=== PATIENT | female | born 1985 | race Caucasian/White ===

== ENCOUNTER 2017-11-13 15:06 | Inpatient (IN) | payer SELFPAY ==
[2017-11-13] MEDS ORDERED: NACL 0.9% 1000 ML 1,000 ML IV ONE ×2 (15:20→17:13)
[2017-11-13 15:59] LABS: Bilirubin,Urine NEG (Negative); Blood,Urine SM (Negative); Color,Urine Yellow (Yellow); Mucus,Urine 1+ /HPF; Protein,Urine <15 mg/dL mg/dL (Negative); Urobilinogen,Urine < 2.0 mg/dL (<2.0)
[2017-11-13 16:13] LABS: Basophils % (Auto) 0.2 % (0.0-1.8); Eosinophils # (Auto) 0.1 K/mm3 (0.0-0.4); Eosinophils % (Auto) 0.5 % (0.0-4.3); Hematocrit 41.6 % (30.3-42.9); Hemoglobin 13.9 gm/dl (10.1-14.3); Lymphocytes # (Auto) 1.3 K/mm3 (1.2-5.4); Lymphocytes % (Auto) 6.9 % (13.4-35.0); Mean Corpuscular HGB Conc 33 % (30-34); Mean Corpuscular Hemoglobin 30 pg (28-32); Mean Corpuscular Volume 89 fl (79-97); Monocytes # (Auto) 0.9 K/mm3 (0.0-0.8); Monocytes % (Auto) 4.8 % (0.0-7.3); Platelet Count 263 K/mm3 (140-440); Red Blood Count 4.66 M/mm3 (3.65-5.03); Red Cell Distribution Width 12.8 % (13.2-15.2)
[2017-11-13 16:36] LABS: Alanine Aminotransferase 28 units/L (7-56); Albumin 4.4 g/dL (3.9-5); BUN/Creatinine Ratio 15; Blood Urea Nitrogen 9 mg/dL (7-17); Calcium 9.5 mg/dL (8.4-10.2); Hemolysis Index 9; Lipase 25 units/L (13-60)
[2017-11-13] MEDS ORDERED: TORADOL IV ONE (17:13)
[2017-11-13] MEDS ORDERED: ZOFRAN IV ONE ×2 (17:13→20:10)
--- NOTE | 2017-11-13 17:15 | Emergency Department Report ---
ED Abdominal Pain HPI - General Chief Complaint: Abdominal Pain Stated Complaint: ABD PAIN Time Seen by Provider: 11/13/17 17:12 Source: patient, nurse practitioner physicians assistant Mode of arrival: Ambulatory Limitations: Language Barrier - History of Present Illness Initial Comments: [place] utilized This is a 32-year-old female reports that she is having right upper quadrant pain, epigastric pain and also pain right upper quadrant radiating to her right back. Patient reports that she has a history of gallbladder disease and she took herbal medicine last year and problem had resolved but now she is having severe pain with nausea. Patient reports pain is crampy, stabbing and 10/10. She denies any fever or chills. Denies any cough or chest pain. Denies any urinary burning, frequency or urgency. Denies any vaginal bleeding or discharge. Patient's that she took [id number] pain medication but her pain has not resolved. No alleviating factors but pain is worse to touch and also when she vomits. MD Complaint: abdominal pain, other (nausea and vomited) Onset/Timin -: days(s) Location: RUQ, epigastric Radiation: back Migration to: no migration Severity: severe Severity scale (0 -10): 10 Quality: cramping, stabbing Consistency: constant Improves With: nothing Worsens With: vomiting, other (palpation) Context: other (patient reports gallbladder disease) Associated Symptoms: nausea, vomiting. denies: diarrhea, fever, chills, constipation, dysuria, hematemesis, hematochezia, melena, hematuria, anorexia, syncope - Related Data Home Medications Medication Instructions Recorded Confirmed Last Taken No Known Home Medications [No 07/20/15 07/20/15 Unknown Reported Home Medications] Allergies Allergy/AdvReac Type Severity Reaction Status Date / Time No Known Allergies Allergy Verified 11/13/17 15:16 ED Review of Systems ROS: Stated complaint: ABD PAIN Other details as noted in HPI Constitutional: denies: chills, fever ENT: denies: ear pain, throat pain, congestion Respiratory: denies: cough, shortness of breath, SOB with exertion, SOB at rest , stridor, wheezing Cardiovascular: denies: chest pain, palpitations, edema, syncope Gastrointestinal: abdominal pain, nausea, vomiting. denies: diarrhea, constipation, hematemesis, melena, hematochezia Genitourinary: denies: urgency, dysuria, discharge Musculoskeletal: denies: back pain, joint swelling, arthralgia Skin: denies: rash, lesions, pruritus Neurological: denies: headache, weakness, numbness, paresthesias, confusion, abnormal gait, vertigo ED Past Medical Hx - Past Medical History Previous Medical History?: No - Surgical History Additional Surgical History: C/S - Social History Smoking Status: Never Smoker Substance Use Type: None - Medications Home Medications: Home Medications Medication Instructions Recorded Confirmed Last Taken Type No Known Home Medications [No 07/20/15 07/20/15 Unknown History Reported Home Medications] ED Physical Exam - General Limitations: Language Barrier ED Course Vital Signs 11/13/17 11/13/17 15:16 20:17 Temperature 98.7 F 99.0 F Pulse Rate 85 64 Respiratory 18 18 Rate Blood Pressure 103/66 Blood Pressure 106/54 [Left] O2 Sat by Pulse 99 99 Oximetry Vital Signs 11/13/17 11/13/17 15:16 20:17 Temperature 98.7 F 99.0 F Pulse Rate 85 64 Respiratory 18 18 Rate Blood Pressure 103/66 Blood Pressure 106/54 [Left] O2 Sat by Pulse 99 99 Oximetry - Reevaluation(s) Reevaluation #1: 11/13/17 18:07 Given Toradol 30 mg IV and Zofran 4 mg IV for nausea and abdominal pain. Normal saline infusing. Patient still with tenderness to abdomen but no nausea. Still awaiting ultrasound Reevaluation #2: 11/13/17 20:[address] Meraz regarding patient lab reports and ultrasound report of gallbladder and he reports that if patient pain can be controlled that she should be sent home and follow-up in office. Patient still with abdominal pain and she said her nausea is coming back. She says she can get somebody to pick her up for her pain is better. Patient to receive morphine 4 mg IV and Zofran 4 mg IV. I discussed with patient via nurse practitioner physicians assistant that her ultrasound shows that she has gallbladder disease with some gallstone .she still have tenderness to her abdomen with guarding. Reevaluation #3: 11/13/17 21:16 Upon reevaluation, patient abdomen is hot frame tender to right upper quadrant, nausea is better but she said her pain is still there. She reports that her pain is 7/10. She no longer have any pain. Reevaluation #4: 11/13/17 21:[address] King was the hospitalist and gave her patient ultrasound report along with CBC and other lab work and I told her that I spoke with Dr. Meraz was a surgeon that reports this patient pain is not controlled that she will need to be admitted and he will see her in the hospital. He wants patient to be admitted by the hospitalist. Dr. King accepted patient. I ordered for IV Zosyn per Dr. King 4.5 g and patient was started on D5 half normal saline at 125 mL an hour. Patient aware of plans for admission and she is in agreement. ED Medical Decision Making - Lab Data Result diagrams: 11/13/17 15:52 11/13/17 15:52 Lab Results 11/13/17 11/13/17 11/13/17 Range/Units 15:26 15:52 15:52 WBC 19.1 H (4.5-11.0) K/mm3 RBC 4.66 (3.65-5.03) M/mm3 Hgb 13.9 (10.1-14.3) gm/dl Hct 41.6 (30.3-42.9) % MCV 89 (79-97) fl MCH 30 (28-32) pg MCHC 33 (30-34) % RDW 12.8 L (13.2-15.2) % Plt Count 263 (140-440) K/mm3 Lymph % (Auto) 6.9 L (13.4-35.0) % [place] % (Auto) 4.8 (0.0-7.3) % Eos % (Auto) 0.5 (0.0-4.3) % Baso % (Auto) 0.2 (0.0-1.8) % Lymph # 1.3 (1.2-5.4) K/mm3 [place] # 0.9 H (0.0-0.8) K/mm3 Eos # 0.1 (0.0-0.4) K/mm3 Baso # 0.0 (0.0-0.1) K/mm3 Seg Neutrophils % 87.6 H (40.0-70.0) % Seg Neutrophils # 16.7 H (1.8-7.7) K/mm3 Sodium 138 (137-145) mmol/L Potassium 4.5 (3.6-5.0) mmol/L Chloride 97.6 L (98-107) mmol/L Carbon Dioxide 28 (22-30) mmol/L Anion Gap 17 mmol/L BUN 9 (7-17) mg/dL Creatinine 0.6 L (0.7-1.2) mg/dL Estimated GFR > 60 ml/min BUN/Creatinine Ratio 15 % Glucose 158 H (65-100) mg/dL Calcium 9.5 (8.4-10.2) mg/dL Total Bilirubin 0.80 (0.1-1.2) mg/dL AST 44 H (5-40) units/L ALT 28 (7-56) units/L Alkaline Phosphatase 110 (35-129) units/L Total Protein 7.9 (6.3-8.2) g/dL Albumin 4.4 (3.9-5) g/dL Albumin/Globulin Ratio 1.3 % Lipase 25 (13-60) units/L HCG, Qual (Negative) Urine Color Yellow (Yellow) Urine Turbidity Clear (Clear) Urine pH 6.0 (5.0-7.0) Ur Specific [place] 1.014 (1.003-1.030) Urine Protein <15 mg/dl (Negative) mg/dL Urine Glucose (UA) Neg (Negative) mg/dL Urine Ketones Neg (Negative) mg/dL Urine Blood Sm (Negative) Urine Nitrite Neg (Negative) Urine Bilirubin Neg (Negative) Urine Urobilinogen < 2.0 (<2.0) mg/dL Ur Leukocyte Esterase Tr (Negative) Urine WBC (Auto) 1.0 (0.0-6.0) /HPF Urine RBC (Auto) 10.0 (0.0-6.0) /HPF U Epithel Cells (Auto) 3.0 (0-13.0) /HPF Urine Mucus 1+ /HPF 11/13/17 Range/Units 16:08 WBC (4.5-11.0) K/mm3 RBC (3.65-5.03) M/mm3 Hgb (10.1-14.3) gm/dl Hct (30.3-42.9) % MCV (79-97) fl MCH (28-32) pg MCHC (30-34) % RDW (13.2-15.2) % Plt Count (140-440) K/mm3 Lymph % (Auto) (13.4-35.0) % [place] % (Auto) (0.0-7.3) % Eos % (Auto) (0.0-4.3) % Baso % (Auto) (0.0-1.8) % Lymph # (1.2-5.4) K/mm3 [place] # (0.0-0.8) K/mm3 Eos # (0.0-0.4) K/mm3 Baso # (0.0-0.1) K/mm3 Seg Neutrophils % (40.0-70.0) % Seg Neutrophils # (1.8-7.7) K/mm3 Sodium (137-145) mmol/L Potassium (3.6-5.0) mmol/L Chloride (98-107) mmol/L Carbon Dioxide (22-30) mmol/L Anion Gap mmol/L BUN (7-17) mg/dL Creatinine (0.7-1.2) mg/dL Estimated GFR ml/min BUN/Creatinine Ratio % Glucose (65-100) mg/dL Calcium (8.4-10.2) mg/dL Total Bilirubin (0.1-1.2) mg/dL AST (5-40) units/L ALT (7-56) units/L Alkaline Phosphatase (35-129) units/L Total Protein (6.3-8.2) g/dL Albumin (3.9-5) g/dL Albumin/Globulin Ratio % Lipase (13-60) units/L HCG, Qual Negative (Negative) Urine Color (Yellow) Urine Turbidity (Clear) Urine pH (5.0-7.0) Ur Specific [place] (1.003-1.030) Urine Protein (Negative) mg/dL Urine Glucose (UA) (Negative) mg/dL Urine Ketones (Negative) mg/dL Urine Blood (Negative) Urine Nitrite (Negative) Urine Bilirubin (Negative) Urine Urobilinogen (<2.0) mg/dL Ur Leukocyte Esterase (Negative) Urine WBC (Auto) (0.0-6.0) /HPF Urine RBC (Auto) (0.0-6.0) /HPF U Epithel Cells (Auto) (0-13.0) /HPF Urine Mucus /HPF Blood culture done - Radiology Data Radiology results: report reviewed Ultrasound abdomen complete dictated by radiologist report reviewed by myself. Please see report below. Patient: ROSELINE KNIGHT MR#: [id number] : 1985 Acct:[id number] Age/Sex: 32 / F ADM Date: 11/13/17 Loc: ED Attending Dr: Ordering Physician: HARSHAL TYLER Date of Service: 11/13/17 Procedure(s): US abdomen complete Accession Number(s): [id number] cc: HARSHAL TYLER FINAL REPORT EXAM: US ABDOMEN COMPLETE HISTORY: abdominal pain/NV TECHNIQUE: Grayscale and color-flow imaging of the abdomen was performed. Comparison: None FINDINGS: Pancreas: Incompletely visualized due to artifact. The visualized portion of the pancreas is unremarkable. Liver: Demonstrates homogeneous echogenicity. There is no demonstration of a focal mass. Upper abdominal aorta: Normal caliber (1.4 centimeters). Right kidney: Measures 10.8 centimeters in the maximal craniocaudal dimension. There is no demonstration of hydronephrosis, renal calculi or renal mass. Gallbladder: Moderately distended and contains numerous gallstones. The gallbladder wall is normal thickness (1 millimeter). There is no demonstration of pericholecystic fluid. Common bile duct: Normal caliber (4.4 millimeters). Spleen: Normal size and echogenicity. Left kidney: Measures 11.3 centimeters in the maximal craniocaudal dimension. There is no demonstration of hydronephrosis, renal calculi or renal mass. No free fluid is demonstrated in the upper abdomen. IMPRESSION: 1. Numerous small gallstones in the moderately distended gallbladder. No ultrasound evidence of acute cholecystitis. 2. The pancreas is incompletely visualized due to artifact. Transcribed By: ED Dictated By: RUTH ANN BROOKE MD Electronically Authenticated By: RUTH ANN BROOKE MD Signed Date/Time: 11/13/171952 DD/ 52 TD/TT: 11/13/171952 - Medical Decision Making This is a 32-year-old patient here for upper quadrant abdominal pain radiating to her back with a history of gallbladder disease. Diagnostics:1. Numerous small gallstones in the moderately distended gallbladder. No ultrasound evidence of acute cholecystitis. Labs: CBC with elevated white count 19.1 with shift to the left, CMP stable with some minor abnormality and minimal elevation in AST. Lipase normal, test is negative urinalysis and stable. Please refer to laboratory section for details and labs. Blood cultures drawn and sent Assessment/plan 1: Abdominal pain, quadrant-retractable despite Toradol 30 mg IV and morphine 4 mg IV. 2: Nausea and vomiting-better with Zofran iv. patient receives normal saline 1 L and started on D5 half-normal saline at 125 mL an hour. 3: Leukocytosis-patient will white count of 19, she is shift to the left, but cultures drawn and sent and patient started on Zosyn 4.[address] King. 4: Gallstones with distention of gallbladder-per ultrasound report .Dr. Meraz consulted and he will see patient tomorrow. Via nurse practitioner physicians assistant I discussed ultrasound report, laboratory self, medication and diagnosis and plan for admission because her pain is not better. Patient is in agreement and to be admitted to inpatient by Dr. King was the hospitalist. I spoke with Dr. King and she accepted patient. I called Dr. Anthony and he said that he will see patient tomorrow and he was consulted. Dr. King will put in her abdomen ED bridge orders as this is her preference. Patient on maintenance D5 half-normal saline and she was ordered Zosyn 4.5 g IV. - Differential Diagnosis GBD,CBD obs, bacterial infection, pancreatitis, liver disease, UTI Critical care attestation.: If time is entered above; I have spent that time in minutes in the direct care of this critically ill patient, excluding procedure time. ED Disposition Clinical Impression: Abdominal pain Qualifiers: Abdominal location: upper abdomen, unspecified Qualified Code(s): R10.10 - Upper abdominal pain, unspecified Gallstones without obstruction of gallbladder Qualifiers: Cholelithiasis location: gallbladder Cholecystitis presence: without cholecystitis Qualified Code(s): K80.20 - Calculus of gallbladder without cholecystitis without obstruction Leukocytosis Qualifiers: Leukocytosis type: unspecified Qualified Code(s): D72.829 - Elevated white blood cell count, unspecified Nausea & vomiting Qualifiers: Vomiting type: unspecified Vomiting Intractability: non-intractable Qualified Code(s): R11.2 - Nausea with vomiting, unspecified Disposition: OP ADMIT IP TO THIS HOSP Is pt being admited?: Yes Does the pt Need Aspirin: No Condition: Stable
--- NOTE | 2017-11-13 19:54 | Ultrasound Report ---
FINAL REPORT EXAM: US ABDOMEN COMPLETE HISTORY: abdominal pain/NV TECHNIQUE: Grayscale and color-flow imaging of the abdomen was performed. Comparison: None FINDINGS: Pancreas: Incompletely visualized due to artifact. The visualized portion of the pancreas is unremarkable. Liver: Demonstrates homogeneous echogenicity. There is no demonstration of a focal mass. Upper abdominal aorta: Normal caliber (1.4 centimeters). Right kidney: Measures 10.8 centimeters in the maximal craniocaudal dimension. There is no demonstration of hydronephrosis, renal calculi or renal mass. Gallbladder: Moderately distended and contains numerous gallstones. The gallbladder wall is normal thickness (1 millimeter). There is no demonstration of pericholecystic fluid. Common bile duct: Normal caliber (4.4 millimeters). Spleen: Normal size and echogenicity. Left kidney: Measures 11.3 centimeters in the maximal craniocaudal dimension. There is no demonstration of hydronephrosis, renal calculi or renal mass. No free fluid is demonstrated in the upper abdomen. IMPRESSION: 1. Numerous small gallstones in the moderately distended gallbladder. No ultrasound evidence of acute cholecystitis. 2. The pancreas is incompletely visualized due to artifact.
[2017-11-13] MEDS ORDERED: MORPHINE IV ONE (20:10)
[2017-11-13] MEDS ORDERED: ZOSYN/NS 4.5GM/100ML 4.5 GM/100 ML VIAL IV SCH (22:00)
[2017-11-13] MEDS ORDERED: D5/0.45NS 1,000 ML IV SCH (22:00)
[2017-11-13] MEDS ORDERED: SODIUM CHLORIDE FLUSH SYRINGE 10 ML IV PRN (22:31)
[2017-11-13] MEDS ORDERED: TYLENOL PO PRN (22:31)
--- NOTE | 2017-11-13 22:32 | History and Physical Report ---
History of Present Illness Date of examination: 11/13/17 History of present illness: 32-year-old woman with no medical problems comes emergency room with complains of abdominal pain located in the epigastric and right upper quadrant 1 week. She described the pain as a hurting pain, that is been constant over the last few days, intensity 6/10, radiating to the back, cannot identify exacerbating factor, relieved with morphine. Admits to nausea and vomiting, no fever Review of systems Constitutional: no weight loss, chills, fever Ears, eyes, nose, mouth and throat: no nasal congestion, no nasal discharge, no sinus pressure, no vision change, no red eye. Neck: No neck pain or rigidity. Cardiovascular: no chest pain, palpitations Respiratory: no cough, shortness of breath Gastrointestinal: no hematochezia Genitourinary : no frequency , no hematuria Musculoskeletal: no joint swelling or muscle ache Integumentary: no rash, no pruritis Neurological: no parathesias, no numbness, no focal weakness Endocrine: no cold or heat intolerance, no polyuria or polydipsia Hematologic/Lymphatic: no easy bruising, no easy bleeding, no gland swelling Allergic/Immunologic: no urticaria, no angioedema. PAST MEDICAL HISTORY: None PAST SURGICAL HISTORY: SOCIAL HISTORY: No alcohol, no drugs, tobacco FAMILY HISTORY: Hypertension Medications and Allergies Allergies Allergy/AdvReac Type Severity Reaction Status Date / Time No Known Allergies Allergy Verified 11/13/17 15:16 Home Medications Medication Instructions Recorded Confirmed Last Taken Type No Known Home Medications [No 07/20/15 07/20/15 Unknown History Reported Home Medications] Active Meds: Active Medications Dextrose/Sodium Chloride (D5/0.45ns) 1,000 mls @ 125 mls/hr IV DIRECT HIREN Last Admin: 11/13/17 21:58 Dose: 125 mls/hr Exam - Physical Exam Narrative exam: Gen. appearance: Patient lying in bed, no apparent distress HEENT: Normocephalic, atraumatic, pupils equally round and reactive to light, extraocular movement intact, and no sclericterus,. No JVD or thyromegaly or nodule,neck supple, no carotid bruit ,mucous membranes moist, no exudate or erythema Heart: S1, S2, regular rate and rhythm Lungs: Clear bilaterally, breathing comfortable Abdomen: Positive bowel sounds, tender in the epigastric, right upper quadrant, nondistended, no organomegaly Extremity:no edema cyanosis, clubbing Skin: no rash, dry, warm Neuro: Oriented 3, cranial nerves II-12 intact, speech is fluent, motor and sensory intact - Constitutional Vitals: Temp Pulse Resp BP Pulse Ox 99.0 F 64 16 106/54 100 11/13/17 20:17 11/13/17 20:17 11/13/17 21:39 11/13/17 20:17 11/13/17 21:39 Results - Labs CBC & Chem 7: 11/13/17 15:52 11/13/17 15:52 Labs: Abnormal lab results 11/13/17 11/13/17 Range/Units 15:52 15:52 WBC 19.1 H (4.5-11.0) K/mm3 RDW 12.8 L (13.2-15.2) % Lymph % (Auto) 6.9 L (13.4-35.0) % [place] # 0.9 H (0.0-0.8) K/mm3 Seg Neutrophils % 87.6 H (40.0-70.0) % Seg Neutrophils # 16.7 H (1.8-7.7) K/mm3 Chloride 97.6 L (98-107) mmol/L Creatinine 0.6 L (0.7-1.2) mg/dL Glucose 158 H (65-100) mg/dL AST 44 H (5-40) units/L - Imaging and Cardiology EKG: image reviewed US - abdomen: report reviewed Assessment and Plan Assessment Cholelithiasis, rule out cholecystitis Plan Admit to medicine Bowel rest,IV fluid,IV Zosyn Consult surgery IV morphine, DVT prophylaxis
[2017-11-14] MEDS: MORPHINE IV PRN ×5 (00:11→20:53)
[2017-11-14 04:36] LABS: Basophils % (Auto) 0.4 % (0.0-1.8); Eosinophils # (Auto) 0.1 K/mm3 (0.0-0.4); Eosinophils % (Auto) 1.3 % (0.0-4.3); Hematocrit 37.1 % (30.3-42.9); Hemoglobin 12.6 gm/dl (10.1-14.3); Lymphocytes # (Auto) 2.1 K/mm3 (1.2-5.4); Lymphocytes % (Auto) 23.6 % (13.4-35.0); Mean Corpuscular HGB Conc 34 % (30-34); Mean Corpuscular Hemoglobin 31 pg (28-32); Mean Corpuscular Volume 90 fl (79-97); Monocytes # (Auto) 0.7 K/mm3 (0.0-0.8); Monocytes % (Auto) 8.2 % (0.0-7.3); Platelet Count 226 K/mm3 (140-440); Red Blood Count 4.14 M/mm3 (3.65-5.03); Red Cell Distribution Width 12.6 % (13.2-15.2)
[2017-11-14 04:47] LABS: BUN/Creatinine Ratio 10; Blood Urea Nitrogen 7 mg/dL (7-17); Calcium 8.4 mg/dL (8.4-10.2); Hemolysis Index 2
[2017-11-14] MEDS: ZOFRAN IV PRN ×3 (05:07→17:18)
[2017-11-14] MEDS: NACL 0.9% 1000 ML 1,000 ML IV SCH ×2 (05:12→17:16)
[2017-11-14] MEDS ORDERED: ZOSYN/NS 4.5GM/100ML 4.5 GM/100 ML VIAL IV SCH (06:00)
[2017-11-14] MEDS ORDERED: ceFAZolin 2 GM in NACL 0.9% 100 ML IV ONE (09:20)
--- NOTE | 2017-11-14 09:43 | Anesthesia Consultation ---
Anesthesia Consult and Med Hx Date of service: 11/14/17 - Airway Anesthetic Teeth Evaluation: Good, Chipped Mallampati Class: Class II Intubation Access Assessment: Good - Pre-Operative Health Status ASA Pre-Surgery Classification: ASA1 Proposed Anesthetic Plan: General - Pulmonary Hx Asthma: No COPD: No Hx Pneumonia: No - Endocrine Hx End Stage Renal Disease: No - Additional Comments Anesthesia Medical History Comments: Hx. migranes. Cracked tooth, lower left molar. Otherwise healthy. NAC previously.
--- NOTE | 2017-11-14 09:43 | Anesthesia Day of Surgery ---
Anesthesia Day of Surgery - Day of Surgery Patient Examined: Yes Patient H&P Reviewed: Yes Patient is NPO: Yes
[2017-11-14] MEDS ORDERED: ANCEF/STERILE WATER 2 GM/20 ML 2 GM/20 ML SYRINGE IV NR (10:00)
[2017-11-14] MEDS ORDERED: NEURONTIN PO NR (10:00)
[2017-11-14] MEDS ORDERED: LOVENOX SUB-Q SCH ×2 (10:00)
--- NOTE | 2017-11-14 10:03 | Consultation ---
History of Present Illness Consult date: 11/14/17 Reason for consult: abdominal pain Requesting physician: ANTONIO GUEVARA Chief complaint: abdominal pain - History of present illness History of present illness: 32yo healthy female presents to ED with 1 week h/o upper abdominal pain. w/u revealed distended GB with stones. Pt reports that it is a band like pain in the upper abdomen that radiates to the right side. +N/V. No F/C. Has happened before and was told that she needed her GB removed. Unable to do so at that time. Pain is better with pain meds. No other issues. Past History Past Medical History: No medical history Past Surgical History: (no complications) Social history: alcohol abuse (very occasional). 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 Stop: 11/14/17 21:00 Sodium Chloride (Nacl 0.9% 1000 Ml) 1,000 mls @ 125 mls/hr IV DIRECT HIREN Last Admin: 11/14/17 05:12 Dose: 125 mls/hr Piperacillin Sod/Tazobactam Sod (Zosyn/Ns 4.5gm/100ml) 4.5 gm in 100 mls @ 200 mls/hr IV Q8HR HIREN; Protocol Last Infusion: 11/14/17 06:27 Dose: Infused Cefazolin Sodium (Ancef/Sterile Water 2 Gm/20 Ml) 2 gm in 20 mls @ 120 mls/hr IV PREOP NR Stop: 11/14/17 21:00 Morphine Sulfate (Morphine) 2 mg IV Q4H PRN PRN Reason: Pain, Moderate (4-6) Last Admin: 11/14/17 09:20 Dose: 2 mg Ondansetron HCl (Zofran) 4 mg IV Q4H PRN PRN Reason: Nausea And Vomiting Last Admin: 11/14/17 09:39 Dose: 4 mg Sodium Chloride (Sodium Chloride Flush Syringe 10 Ml) 10 ml IV BID HIREN Sodium Chloride (Sodium Chloride Flush Syringe 10 Ml) 10 ml IV PRN PRN PRN Reason: LINE FLUSH Review of Systems - Constitutional no weight loss, no fever, no chills, no sweats, no night sweats, no chronic pain - Cardiovascular chest pain (occasional chest pressure - mild tenderess to touch. Happened last night without radiation. Also occurred a few weeks ago with tingling in the left arm. Symptoms have always been mild. ), no rapid/irregular heart beat, no shortness of breath - Respiratory no cough, no shortness of breath - Gastrointestinal abdominal pain, nausea, vomiting, no diarrhea, no constipation, no change in bowel habits, no hematemesis, no coffee ground emesis, no BRBPR, no melena, no hematochezia, no dyspepsia/bloating - Genitourinary Genitourinary: no dysuria - Muskuloskeletal no low back pain - Integumentary no rash, no pruritis, no wounds Exam Vital Signs Temp Pulse Resp BP Pulse Ox 98.7 F 85 18 103/66 99 11/13/17 15:16 11/13/17 15:16 11/13/17 15:16 11/13/17 15:16 11/13/17 15:16 - General physical appearance Positive: no distress, no pain, other (healthy appearing) - Eyes Positive: normal occular movement. Negative: icteric - Respiratory Positive: normal expansion, normal respiratory effort, clear to auscultation - Cardiovascular Rhythm: regular - Abdomen Abdomen: Present: soft, tender (mild). Absent: distended, masses, rebound, guarding, rigid, wound - Integumentary no rash, no growths, no abnormal pigmentation - Neurologic Neurologic: alert and oriented to time, place and person, motor strength and sensation are grossly intact - Psychiatric Psychiatric: appropriate mood/affect, intact judgment & insight, cooperative Results - Labs 11/14/17 04:04 11/14/17 04:04 Abnormal lab results 11/13/17 11/13/17 11/14/17 Range/Units 15:52 15:52 04:04 WBC 19.1 H (4.5-11.0) K/mm3 RDW 12.8 L 12.6 L (13.2-15.2) % Lymph % (Auto) 6.9 L (13.4-35.0) % Meagher % (Auto) 8.2 H (0.0-7.3) % Meagher # 0.9 H (0.0-0.8) K/mm3 Seg Neutrophils % 87.6 H (40.0-70.0) % Seg Neutrophils # 16.7 H (1.8-7.7) K/mm3 Chloride 97.6 L (98-107) mmol/L Creatinine 0.6 L (0.7-1.2) mg/dL Glucose 158 H (65-100) mg/dL AST 44 H (5-40) units/L 11/14/17 Range/Units 04:04 WBC (4.5-11.0) K/mm3 RDW (13.2-15.2) % Lymph % (Auto) (13.4-35.0) % Meagher % (Auto) (0.0-7.3) % Meagher # (0.0-0.8) K/mm3 Seg Neutrophils % (40.0-70.0) % Seg Neutrophils # (1.8-7.7) K/mm3 Chloride (98-107) mmol/L Creatinine (0.7-1.2) mg/dL Glucose 122 H (65-100) mg/dL AST (5-40) units/L Diabetes panel 11/13/17 11/14/17 Range/Units 15:52 04:04 Sodium 138 141 (137-145) mmol/L Potassium 4.5 3.8 (3.6-5.0) mmol/L Chloride 97.6 L 100.5 (98-107) mmol/L Carbon Dioxide 28 29 (22-30) mmol/L BUN 9 7 (7-17) mg/dL Creatinine 0.6 L 0.7 (0.7-1.2) mg/dL Glucose 158 H 122 H (65-100) mg/dL Calcium 9.5 8.4 (8.4-10.2) mg/dL AST 44 H (5-40) units/L ALT 28 (7-56) units/L Alkaline Phosphatase 110 (35-129) units/L Total Protein 7.9 (6.3-8.2) g/dL Albumin 4.4 (3.9-5) g/dL Calcium panel 11/13/17 11/14/17 Range/Units 15:52 04:04 Calcium 9.5 8.4 (8.4-10.2) mg/dL Albumin 4.4 (3.9-5) g/dL Pituitary panel 11/13/17 11/14/17 Range/Units 15:52 04:04 Sodium 138 141 (137-145) mmol/L Potassium 4.5 3.8 (3.6-5.0) mmol/L Chloride 97.6 L 100.5 (98-107) mmol/L Carbon Dioxide 28 29 (22-30) mmol/L BUN 9 7 (7-17) mg/dL Creatinine 0.6 L 0.7 (0.7-1.2) mg/dL Glucose 158 H 122 H (65-100) mg/dL Calcium 9.5 8.4 (8.4-10.2) mg/dL Adrenal panel 11/13/17 11/14/17 Range/Units 15:52 04:04 Sodium 138 141 (137-145) mmol/L Potassium 4.5 3.8 (3.6-5.0) mmol/L Chloride 97.6 L 100.5 (98-107) mmol/L Carbon Dioxide 28 29 (22-30) mmol/L BUN 9 7 (7-17) mg/dL Creatinine 0.6 L 0.7 (0.7-1.2) mg/dL Glucose 158 H 122 H (65-100) mg/dL Calcium 9.5 8.4 (8.4-10.2) mg/dL Total Bilirubin 0.80 (0.1-1.2) mg/dL AST 44 H (5-40) units/L ALT 28 (7-56) units/L Alkaline Phosphatase 110 (35-129) units/L Total Protein 7.9 (6.3-8.2) g/dL Albumin 4.4 (3.9-5) g/dL - Imaging US - abdomen: report reviewed, image reviewed Assessment and Plan - Patient Problems (1) Cholelithiasis Current Visit: Yes Status: Acute Qualifiers: Cholelithiasis location: gallbladder Cholecystitis presence: without cholecystitis Biliary obstruction: without biliary obstruction Qualified Code(s): K80.20 - Calculus of gallbladder without cholecystitis without obstruction Plan to address problem: Pt stable. Appears to have symptomatic cholelithiasis. Pt in need of lap valeria. Procedure, risks, benefits explained. all questions answered. Consent obtained. Will proceed to OR today. time=40min
--- NOTE | 2017-11-14 10:05 | Progress Note ---
Assessment and Plan Assessment and plan: Symptomatic cholelithiasis. Surgery following. Leukocytosis. Etiology appears to be stress-induced. Rule out cholecystitis. Follow-up culture results and continue empiric IV antibiotics. Abdominal pain. Etiology secondary to #1. Continue pain control and supportive care. History Interval history: No new issues overnight Hospitalist Physical - Constitutional Vitals: Temp Pulse Resp BP Pulse Ox 98.4 F 63 16 97/56 99 11/14/17 07:14 11/14/17 07:14 11/14/17 07:14 11/14/17 07:14 11/14/17 07:14 General appearance: Present: no acute distress, well-nourished - EENT Eyes: Present: PERRL, EOM intact ENT: hearing intact, clear oral mucosa, dentition normal - Neck Neck: Present: supple, normal ROM - Respiratory Respiratory effort: normal Respiratory: bilateral: CTA - Cardiovascular Rhythm: regular Heart Sounds: Present: S1 & S2. Absent: gallop, rub - Extremities Extremities: no ischemia, No edema, Full ROM - Abdominal General gastrointestinal: soft, non-tender, non-distended, normal bowel sounds - Integumentary Integumentary: Present: clear, warm, dry - Neurologic Neurologic: CNII-XII intact, moves all extremities Results - Labs CBC & Chem 7: 11/14/17 04:04 11/14/17 04:04 Labs: Laboratory Last Values WBC 9.1 K/mm3 (4.5-11.0) 11/14/17 04:04 RBC 4.14 M/mm3 (3.65-5.03) 11/14/17 04:04 Hgb 12.6 gm/dl (10.1-14.3) 11/14/17 04:04 Hct 37.1 % (30.3-42.9) 11/14/17 04:04 MCV 90 fl (79-97) 11/14/17 04:04 MCH 31 pg (28-32) 11/14/17 04:04 MCHC 34 % (30-34) 11/14/17 04:04 RDW 12.6 % (13.2-15.2) L 11/14/17 04:04 Plt Count 226 K/mm3 (140-440) 11/14/17 04:04 Lymph % (Auto) 23.6 % (13.4-35.0) 11/14/17 04:04 Marion % (Auto) 8.2 % (0.0-7.3) H 11/14/17 04:04 Eos % (Auto) 1.3 % (0.0-4.3) 11/14/17 04:04 Baso % (Auto) 0.4 % (0.0-1.8) 11/14/17 04:04 Lymph # 2.1 K/mm3 (1.2-5.4) 11/14/17 04:04 Marion # 0.7 K/mm3 (0.0-0.8) 11/14/17 04:04 Eos # 0.1 K/mm3 (0.0-0.4) 11/14/17 04:04 Baso # 0.0 K/mm3 (0.0-0.1) 11/14/17 04:04 Seg Neutrophils % 66.5 % (40.0-70.0) 11/14/17 04:04 Seg Neutrophils # 6.1 K/mm3 (1.8-7.7) 11/14/17 04:04 Sodium 141 mmol/L (137-145) 11/14/17 04:04 Potassium 3.8 mmol/L (3.6-5.0) 11/14/17 04:04 Chloride 100.5 mmol/L (98-107) 11/14/17 04:04 Carbon Dioxide 29 mmol/L (22-30) 11/14/17 04:04 Anion Gap 15 mmol/L 11/14/17 04:04 BUN 7 mg/dL (7-17) 11/14/17 04:04 Creatinine 0.7 mg/dL (0.7-1.2) 11/14/17 04:04 Estimated GFR > 60 ml/min 11/14/17 04:04 BUN/Creatinine Ratio 10 % 11/14/17 04:04 Glucose 122 mg/dL (65-100) H 11/14/17 04:04 Calcium 8.4 mg/dL (8.4-10.2) 11/14/17 04:04 Total Bilirubin 0.80 mg/dL (0.1-1.2) 11/13/17 15:52 AST 44 units/L (5-40) H 11/13/17 15:52 ALT 28 units/L (7-56) 11/13/17 15:52 Alkaline Phosphatase 110 units/L (35-129) 11/13/17 15:52 Total Protein 7.9 g/dL (6.3-8.2) 11/13/17 15:52 Albumin 4.4 g/dL (3.9-5) 11/13/17 15:52 Albumin/Globulin Ratio 1.3 % 11/13/17 15:52 Lipase 25 units/L (13-60) 11/13/17 15:52 HCG, Qual Negative (Negative) 11/13/17 16:08 Urine Color Yellow (Yellow) 11/13/17 15:26 Urine Turbidity Clear (Clear) 11/13/17 15: Urine pH 6.0 (5.0-7.0) 11/13/17 15:26 Ur Specific [place] 1.014 (1.003-1.030) 11/13/17 15:26 Urine Protein <15 mg/dl mg/dL (Negative) 11/13/17 15:26 Urine Glucose (UA) Neg mg/dL (Negative) 11/13/17 15:26 Urine Ketones Neg mg/dL (Negative) 11/13/17 15:26 Urine Blood Sm (Negative) 11/13/17 15:26 Urine Nitrite Neg (Negative) 11/13/17 15:26 Urine Bilirubin Neg (Negative) 11/13/17 15:26 Urine Urobilinogen < 2.0 mg/dL (<2.0) 11/13/17 15:26 Ur Leukocyte Esterase Tr (Negative) 11/13/17 15:26 Urine WBC (Auto) 1.0 /HPF (0.0-6.0) 11/13/17 15:26 Urine RBC (Auto) 10.0 /HPF (0.0-6.0) 11/13/17 15:26 U Epithel Cells (Auto) 3.0 /HPF (0-13.0) 11/13/17 15: Urine Mucus 1+ /HPF 11/13/17 15:26
[2017-11-14] MEDS ORDERED: XYLOCAINE 1% 20 mL ONE (10:51)
[2017-11-14] MEDS ORDERED: MARCAINE 0.5% INFILTRATI ONE ×3 (10:51→11:28)
[2017-11-14] MEDS ORDERED: DIPRIVAN 10 MG/ML IV ONE (10:54)
[2017-11-14] MEDS ORDERED: DILAUDID ONE ×2 (10:54→12:54)
[2017-11-14] MEDS ORDERED: XYLOCAINE 1% 20 mL INFILTRATI ONE ×2 (11:28)
[2017-11-14] MEDS ORDERED: XYLOCAINE MPF 2% ONE (11:31)
[2017-11-14] MEDS ORDERED: ZOFRAN ONE (11:32)
[2017-11-14] MEDS ORDERED: ROBINUL ONE (11:32)
[2017-11-14] MEDS ORDERED: DECADRON ONE (11:32)
[2017-11-14] MEDS ORDERED: BLOXIVERZ ONE (11:32)
[2017-11-14] MEDS ORDERED: ZEMURON IV ONE (11:32)
[2017-11-14] MEDS ORDERED: NACL ONE (11:53)
--- NOTE | 2017-11-14 12:37 | Post Operative Note ---
Date of procedure: 11/14/17 (Dictation:[id number]) Pre-op diagnosis: Symptomatic Cholelithiasis Post-op diagnosis: same Findings: distended GB with stones. Normal IOC Procedure: Lap Kera with IOC Anesthesia: BERNARDO Surgeon: SHIRA SR Lead Nuclear Medicine Technologist: NATALEE YADAV Estimated blood loss: minimal (25cc) Pathology: list (GB) Specimen disposition: to lab Condition: stable Disposition: PACU
[2017-11-14] MEDS: DILAUDID IV PRN ×2 (12:50→13:00)
--- NOTE | 2017-11-14 13:20 | Operative Report ---
PREOPERATIVE DIAGNOSIS: Symptomatic cholelithiasis. POSTOPERATIVE DIAGNOSIS: Symptomatic cholelithiasis. PROCEDURE: Laparoscopic cholecystectomy with intraoperative cholangiogram. ATTENDING PHYSICIAN: Donya Meraz MD GUIDE CRUISE: Dr. López ANESTHESIA: General. ESTIMATED BLOOD LOSS: Less than 25 mL. FLUIDS: 600 mL. FINDINGS: Distended gallbladder with no signs of inflammatory changes, normal intraoperative cholangiogram. SPECIMENS: Gallbladder. DRAINS: None. COMPLICATIONS: None, stable transferred to Recovery Room. INDICATIONS: This 32-year-old female who presented to the Emergency Department with severe abdominal pain associated with nausea and vomiting, white count was 19, evaluation was done, the patient was assessed to have gallbladder disease, admitted to the medicine service and General Surgery was consulted. The patient was assessed to have symptomatic cholelithiasis. White count normalized the next day. She had had previous attacks before. The patient was estimated need for laparoscopic cholecystectomy. Procedure, risks, benefits, alternatives were discussed with the patient. Risks included but were not limited to infection, bleeding, pain, injury to surrounding structures, possible need for further surgery in the future. The patient understood and consented. OPERATIVE NOTE: The patient was brought to the operating room and placed on the table in supine position. After adequate general anesthesia was established, the patient was prepped and draped in the usual sterile fashion. Two grams of Ancef had been administered prior to start of the case. SCDs were in place. Time-out was called. I began by placing a Veress needle in left upper quadrant 3 fingerbreadths below the costal margin. I was able to insufflate in the first attempt. We then anesthetized the supraumbilical skin with 0.5% Marcaine and 1% lidocaine, curvilinear incision was made. Using the Optiview technique, I placed a 10 mm port. We entered the peritoneal cavity safely. There was no injury to the underlying structures. I examined the area underneath the Veress needle. There was no evidence of any injury. Veress needle was removed. We then placed three 5 mm ports in the right upper quadrant parallel to the subcostal margin. Gallbladder was fairly distended, difficult to grab, so we used the aspiration needle to aspirate what appeared to be normal-appearing bile with no foul smell. Once that was done, we then elevated the gallbladder over the liver edge, dissected out the cystic duct and cystic artery and created the critical view. Once we, both Dr. López and I were satisfied that the dissection was adequate and we had good critical view, we then placed a clip on the cystic duct proximal in relation to the gallbladder, a small opening was made in cystic duct. Cholangiogram catheter was inserted, cholangiogram was done. Both Dr. López and I evaluated the cholangiogram, we saw no evidence of any filling defects. We had good drainage into the small bowel and we had good filling of the left and right hepatic branches. We then removed the catheter. Three clips were placed distally and the cystic duct in relation to the gallbladder. Cystic duct was divided with Harmonic scalpel. Cystic artery was divided with a Harmonic scalpel. We then removed this gallbladder from the bed with the Harmonic scalpel, placed the specimen in EndoCatch bag left hand side. We reexamined the bed, it was completely hemostatic. We had a very clean dissection. Clips were in place. There was no evidence of any bile leak, no bleeding, everything looked very good, just a small amount of fluid in the area from the dissection itself. We then removed the EndoCatch bag from the umbilical port site. We had to stretch it open a little bit and then remove it. We used a Jared-Darrel fascial closure device to close the fascia with a 0 Vicryl stitch. Once that was done, we had an airtight seal. Additional local was injected into all the port sites with a small amount of skin bleeding at the umbilical port site, which we took care with electrocautery. Skin was closed with 4-0 Monocryl subcuticular stitches. Skin was cleaned, dried. Dermabond was placed. The patient tolerated procedure well. There were no complications. All counts were correct at the end of the case. I spoke with the family at the end of the case, they appreciated. JOB# [id number] VIC/BRYAN
[2017-11-14] MEDS ORDERED: NORCO 5/325 PO PRN (13:30)
[2017-11-14] MEDS ORDERED: DEMEROL IV PRN (13:30)
[2017-11-14] MEDS ORDERED: ZOFRAN IV PRN (13:30)
[2017-11-14] MEDS ORDERED: NARCAN 0.4 MG/1 ML IV PRN (13:30)
[2017-11-15] MEDS: MORPHINE IV PRN (02:13)
[2017-11-15] MEDS: NACL 0.9% 1000 ML 1,000 ML IV SCH ×2 (02:13→10:05)
[2017-11-15] MEDS: SODIUM CHLORIDE FLUSH SYRINGE 10 ML IV SCH ×2 (02:16→10:06)
--- NOTE | 2017-11-15 07:51 | Fluoroscopy Report ---
FLUOROSCOPY CHOLANGIOGRAM OPERATIVE History: Cholelithiasis. Findings: Fluoroscopy was provided by radiology during intraoperative cholangiogram by the surgeon. A single fluoroscopic image of the right upper quadrant was captured. The image demonstrates cholecystectomy changes and contrast agent throughout the common bile duct and central biliary ducts. No filling defect or stricture is identified. No obvious biliary leak. Please correlate with the operative report as needed.
--- NOTE | 2017-11-15 09:05 | Progress Note ---
Assessment and Plan - Patient Problems (1) Cholelithiasis Current Visit: Yes Status: Acute Qualifiers: Cholelithiasis location: gallbladder Cholecystitis presence: without cholecystitis Biliary obstruction: without biliary obstruction Qualified Code(s): K80.20 - Calculus of gallbladder without cholecystitis without obstruction Plan to address problem: Pt stable. s/p lap valeria with IOC - 11/14 POD#1. Pt doing well. Ok to d/c home 1) f/u in 2 week 2) diet as tolerated 3) no heavy lifting or strenuous activity. 4) may shower - pat dry wounds. Please call with questions. Subjective Date of service: 11/15/17 Patient Reports: Positive: feels better, tolerating liquids well, other (having incisional pain) Objective Vital Signs - 12hr 11/14/17 11/15/17 11/15/17 23:57 04:29 08:09 Temperature 98.3 F 98.2 F Pulse Rate 67 57 L Respiratory 16 16 16 Rate Blood Pressure 98/60 89/48 O2 Sat by Pulse 100 99 Oximetry 11/15/17 08:37 Temperature Pulse Rate Respiratory Rate Blood Pressure O2 Sat by Pulse 97 Oximetry - General physical appearance no distress, no pain - Eyes normal occular movement - Respiratory normal expansion, normal respiratory effort - Abdomen soft, tender (appropriate at incisions only), not distended, not guarding, not rigid - Psychiatric oriented to time, oriented to person, oriented to place, speech is normal, memory intact - Labs 11/14/17 04:04 11/14/17 04:04
[2017-11-15 09:12] VITALS: BP 100/63
--- NOTE | 2017-11-15 10:55 | Discharge Summary ---
Providers - Providers Date of Admission: 11/13/17 22:31 Date of discharge: 11/15/17 Attending physician: JESSICA MAYEN 11/13/17 21:26 Consult to Physician [CONS] Stat Comment: CONSULT COMPLETED Consulting Provider: SHIRA SR Physician Instructions: Reason For Exam: Gallbladder disease, stones Primary care physician: BUS ATTENDANT Hospitalization Reason for admission: abd pain Condition: Stable Hospital course: 32-year-old female who presented through the emergency department with upper abdominal pain. The patient's workup revealed distended gallbladder with cholelithiasis. The patient was admitted with diagnosis of symptomatic cholelithiasis and underwent lap cholecystectomy on 11/14/17. The patient tolerated the procedure well and surgery felt the patient could discharge home. Dedicated discharge time 32 minutes. Disposition: [facility]- TO HOME OR SELFCARE Time spent for discharge: 32 - Discharge Diagnoses (1) Abdominal pain Status: Acute Qualifiers: Abdominal location: upper abdomen, unspecified Qualified Code(s): R10.10 - Upper abdominal pain, unspecified (2) Cholelithiasis Status: Acute Qualifiers: Cholelithiasis location: gallbladder Cholecystitis presence: without cholecystitis Biliary obstruction: without biliary obstruction Qualified Code(s): K80.20 - Calculus of gallbladder without cholecystitis without obstruction (3) Gallstones without obstruction of gallbladder Status: Acute Qualifiers: Cholelithiasis location: gallbladder Cholecystitis presence: without cholecystitis Qualified Code(s): K80.20 - Calculus of gallbladder without cholecystitis without obstruction (4) Nausea & vomiting Status: Acute Qualifiers: Vomiting type: unspecified Vomiting Intractability: non-intractable Qualified Code(s): R11.2 - Nausea with vomiting, unspecified Core Measure Documentation - Palliative Care Palliative Care/ Comfort Measures: Not Applicable - Core Measures Any of the following diagnoses?: none Exam - Constitutional Vitals: Temp Pulse Resp BP Pulse Ox 98.0 F 70 20 100/63 97 11/15/17 08:28 11/15/17 08:29 11/15/17 10:11 11/15/17 08:28 11/15/17 08:37 General appearance: Present: no acute distress, well-nourished - EENT Eyes: Present: PERRL ENT: hearing intact, clear oral mucosa - Neck Neck: Present: supple, normal ROM - Respiratory Respiratory effort: normal Respiratory: bilateral: CTA - Cardiovascular Heart Sounds: Present: S1 & S2. Absent: rub, click - Extremities Extremities: pulses symmetrical, No edema Peripheral Pulses: within normal limits - Abdominal General gastrointestinal: Present: soft, non-tender, non-distended, normal bowel sounds Female genitourinary: Present: normal - Integumentary Integumentary: Present: clear, warm, dry - Musculoskeletal Musculoskeletal: gait normal, strength equal bilaterally - Psychiatric Psychiatric: appropriate mood/affect, intact judgment & insight - Neurologic Neurologic: CNII-XII intact, moves all extremities Plan Activity: advance as tolerated Weight Bearing Status: Weight Bear as Tolerated Diet: low fat, low cholesterol Wound: per your surgeon's advice Follow up with: PRIMARY CAREMD [Primary Care Provider] - 7 Days SHIRA SR MD [Staff Physician] - 7 Days Prescriptions: HYDROcodone/ACETAMINOPHEN [Hydrocodone-Acetamin 5-325 mg] 1 each PO Q6HR 7 Days #24 tablet HYDROcodone/APAP 5-325 [[place] 5-325 mg TAB] 1 each PO Q6H PRN #24 tablet PRN Reason: Pain, Moderate (4-6)
== END 2017-11-15 12:40 | disposition home or self-care (01) | DRG 419 ==
LOC: ED 15:06 → 3B-SURG 22:31
PROVIDERS: ADMIT Internal Medicine; ATTEND Hospitalist
PROC: 0FT44ZZ Resection of Gallbladder, Percutaneous Endoscopic Approach (ICD-10-PCS; principal; 2017-11-14)
PROC: BF131ZZ Fluoroscopy of Gallbladder and Bile Ducts using Low Osmolar Contrast (ICD-10-PCS; 2017-11-14)
DX: K80.20 Calculus of gallbladder without cholecystitis without obstruction (principal); D72.829 Elevated white blood cell count, unspecified; G43.909 Migraine, unspecified, not intractable, without status migrainosus; Z82.49 Family history of ischemic heart disease and other diseases of the circulatory system
CPT/HCPCS: 36415; 74300; 76700; 80048; 80053; 81001; 83690; 84703; 85025; 87040; 88304; 96361; 96374; 96375; J0690; J1100; J1170; J1885; J2270; J2405; J2543; J2704; J2710; J7030; Q9967

== ENCOUNTER 2018-12-13 09:37 | Emergency (ER) | payer SELFPAY ==
[2018-12-13 11:33] LABS: Basophils % (Auto) 0.3 % (0.0-1.8); Eosinophils % (Auto) 0.1 % (0.0-4.3); Hematocrit 43.7 % (30.3-42.9); Hemoglobin 14.5 gm/dl (10.1-14.3); Lymphocytes # (Auto) 1.4 K/mm3 (1.2-5.4); Lymphocytes % (Auto) 11.6 % (13.4-35.0); Mean Corpuscular HGB Conc 33 % (30-34); Mean Corpuscular Volume 90 fl (79-97); Monocytes # (Auto) 0.7 K/mm3 (0.0-0.8); Monocytes % (Auto) 5.3 % (0.0-7.3); Platelet Count 243 K/mm3 (140-440); Red Blood Count 4.88 M/mm3 (3.65-5.03); Red Cell Distribution Width 12.7 % (13.2-15.2)
[2018-12-13 11:44] LABS: Partial Thromboplastin Time 27.2 Sec. (24.2-36.6)
[2018-12-13 11:56] LABS: Alanine Aminotransferase 36 units/L (7-56); Albumin 4.4 g/dL (3.9-5); BUN/Creatinine Ratio 12; Blood Urea Nitrogen 7 mg/dL (7-17); Calcium 9.4 mg/dL (8.4-10.2); Hemolysis Index 7
--- NOTE | 2018-12-13 12:39 | XRay Report ---
CHEST 1 VIEW INDICATION: Chest Pain. COMPARISON: None FINDINGS: Support devices: None. Heart: Within normal limits. Lungs/Pleura: No acute air space or interstitial disease. Additional findings: None. IMPRESSION: No acute findings. Signer Name: René Moeller Jr, MD Signed: 12/13/2018 12:35 PM Workstation Name: [id number]
--- NOTE | 2018-12-13 13:34 | Emergency Department Report ---
ED General Adult HPI - General Chief complaint: Dyspnea/Respdistress Stated complaint: AIDA Time Seen by Provider: 12/13/18 10:22 Source: patient, EMS Mode of arrival: Stretcher Limitations: No Limitations - History of Present Illness Initial comments: Patient presents to the emergency department with a chief complaint of shortness of breath and chest pain that has been present for the last 5 months. Patient states at times she feels like she is having difficulty breathing and denies any exacerbating factors. The patient is Azeri-speaking and manufacturing controls engineer was used. -: Gradual, month(s) Severity scale (0 -10): 4 Improves with: none Worsens with: none Associated Symptoms: denies other symptoms Treatments Prior to Arrival: none - Related Data Previous Rx's Medication Instructions Recorded Last Taken Type HYDROcodone/ACETAMINOPHEN 1 each PO Q6HR 7 Days #24 tablet 11/15/17 Unknown Rx [Hydrocodone-Acetamin 5-325 mg] HYDROcodone/APAP 5-325 [[place] 1 each PO Q6H PRN #24 tablet 11/15/17 Unknown Rx 5-325 mg TAB] Allergies Allergy/AdvReac Type Severity Reaction Status Date / Time shrimp Allergy Swelling Verified 12/13/18 10:14 ED Review of Systems ROS: Stated complaint: AIDA Other details as noted in HPI Comment: All other systems reviewed and negative Constitutional: denies: chills, fever Eyes: denies: eye pain, eye discharge, vision change ENT: denies: ear pain, throat pain Respiratory: shortness of breath. denies: cough, wheezing Cardiovascular: chest pain. denies: palpitations Endocrine: no symptoms reported Gastrointestinal: denies: abdominal pain, nausea, diarrhea Genitourinary: denies: urgency, dysuria, discharge Musculoskeletal: denies: back pain, joint swelling, arthralgia Skin: denies: rash, lesions Neurological: denies: headache, weakness, paresthesias Psychiatric: denies: anxiety, depression Hematological/Lymphatic: denies: easy bleeding, easy bruising ED Past Medical Hx - Past Medical History Previous Medical History?: Yes Hx Congestive Heart Failure: No Hx Diabetes: No Hx Asthma: No Hx COPD: No Additional medical history: Angina - Surgical History Past Surgical History?: Yes Hx Cholecystectomy: Yes Additional Surgical History: - Social History Smoking Status: Never Smoker Substance Use Type: None - Medications Home Medications: Home Medications Medication Instructions Recorded Confirmed Last Taken Type HYDROcodone/ACETAMINOPHEN 1 each PO Q6HR 7 Days #24 tablet 11/15/17 Unknown Rx [Hydrocodone-Acetamin 5-325 mg] HYDROcodone/APAP 5-325 [[place] 1 each PO Q6H PRN #24 tablet 11/15/17 Unknown Rx 5-325 mg TAB] ED Physical Exam - General Limitations: No Limitations General appearance: alert, in no apparent distress - Head Head exam: Present: atraumatic, normocephalic - Eye Eye exam: Present: normal appearance, PERRL, EOMI - ENT ENT exam: Present: mucous membranes moist - Neck Neck exam: Present: normal inspection - Respiratory Respiratory exam: Present: normal lung sounds bilaterally. Absent: respiratory distress - Cardiovascular Cardiovascular Exam: Present: regular rate, normal rhythm. Absent: systolic murmur, diastolic murmur, rubs, gallop - GI/Abdominal GI/Abdominal exam: Present: soft, normal bowel sounds. Absent: distended, tenderness - Extremities Exam Extremities exam: Present: normal inspection - Back Exam Back exam: Present: normal inspection - Neurological Exam Neurological exam: Present: alert, oriented X3, CN II-XII intact. Absent: motor sensory deficit - Psychiatric Psychiatric exam: Present: normal affect, normal mood - Skin Skin exam: Present: warm, dry, intact, normal color. Absent: rash ED Course Vital Signs 12/13/18 12/13/18 12/13/18 09:38 09:46 10:00 Temperature 99.1 F Pulse Rate 70 70 Respiratory 12 15 Rate Blood Pressure 147/71 110/70 Blood Pressure 147/71 [right] O2 Sat by Pulse 100 100 Oximetry 12/13/18 12/13/18 10:16 10:30 Temperature Pulse Rate 80 67 Respiratory 12 19 Rate Blood Pressure 110/70 115/57 Blood Pressure [right] O2 Sat by Pulse 99 99 Oximetry ED Medical Decision Making - Lab Data Result diagrams: 12/13/18 11:12 12/13/18 11:12 Lab Results 12/13/18 12/13/18 12/13/18 Range/Units 11:12 11:12 11:12 WBC 12.5 H (4.5-11.0) K/mm3 RBC 4.88 (3.65-5.03) M/mm3 Hgb 14.5 H (10.1-14.3) gm/dl Hct 43.7 H (30.3-42.9) % MCV 90 (79-97) fl MCH 30 (28-32) pg MCHC 33 (30-34) % RDW 12.7 L (13.2-15.2) % Plt Count 243 (140-440) K/mm3 Lymph % (Auto) 11.6 L (13.4-35.0) % [place] % (Auto) 5.3 (0.0-7.3) % Eos % (Auto) 0.1 (0.0-4.3) % Baso % (Auto) 0.3 (0.0-1.8) % Lymph # 1.4 (1.2-5.4) K/mm3 [place] # 0.7 (0.0-0.8) K/mm3 Eos # 0.0 (0.0-0.4) K/mm3 Baso # 0.0 (0.0-0.1) K/mm3 Seg Neutrophils % 82.7 H (40.0-70.0) % Seg Neutrophils # 10.4 H (1.8-7.7) K/mm3 PT 13.9 (12.2-14.9) Sec. INR 1.10 (0.87-1.13) APTT 27.2 (24.2-36.6) Sec. D-Dimer < 135.00 (0-234) ng/mlDDU Sodium 138 (137-145) mmol/L Potassium 4.3 (3.6-5.0) mmol/L Chloride 99.4 (98-107) mmol/L Carbon Dioxide 26 (22-30) mmol/L Anion Gap 17 mmol/L BUN 7 (7-17) mg/dL Creatinine 0.6 L (0.7-1.2) mg/dL Estimated GFR > 60 ml/min BUN/Creatinine Ratio 12 % Glucose 97 (65-100) mg/dL Calcium 9.4 (8.4-10.2) mg/dL Total Bilirubin 0.60 (0.1-1.2) mg/dL AST 25 (5-40) units/L ALT 36 (7-56) units/L Alkaline Phosphatase 94 (35-129) units/L Troponin T < 0.010 (0.00-0.029) ng/mL Total Protein 8.0 (6.3-8.2) g/dL Albumin 4.4 (3.9-5) g/dL Albumin/Globulin Ratio 1.2 % Lipase 13 (13-60) units/L HCG, Qual (Negative) 12/13/18 Range/Units 11:12 WBC (4.5-11.0) K/mm3 RBC (3.65-5.03) M/mm3 Hgb (10.1-14.3) gm/dl Hct (30.3-42.9) % MCV (79-97) fl MCH (28-32) pg MCHC (30-34) % RDW (13.2-15.2) % Plt Count (140-440) K/mm3 Lymph % (Auto) (13.4-35.0) % [place] % (Auto) (0.0-7.3) % Eos % (Auto) (0.0-4.3) % Baso % (Auto) (0.0-1.8) % Lymph # (1.2-5.4) K/mm3 [place] # (0.0-0.8) K/mm3 Eos # (0.0-0.4) K/mm3 Baso # (0.0-0.1) K/mm3 Seg Neutrophils % (40.0-70.0) % Seg Neutrophils # (1.8-7.7) K/mm3 PT (12.2-14.9) Sec. INR (0.87-1.13) APTT (24.2-36.6) Sec. D-Dimer (0-234) ng/mlDDU Sodium (137-145) mmol/L Potassium (3.6-5.0) mmol/L Chloride (98-107) mmol/L Carbon Dioxide (22-30) mmol/L Anion Gap mmol/L BUN (7-17) mg/dL Creatinine (0.7-1.2) mg/dL Estimated GFR ml/min BUN/Creatinine Ratio % Glucose (65-100) mg/dL Calcium (8.4-10.2) mg/dL Total Bilirubin (0.1-1.2) mg/dL AST (5-40) units/L ALT (7-56) units/L Alkaline Phosphatase (35-129) units/L Troponin T (0.00-0.029) ng/mL Total Protein (6.3-8.2) g/dL Albumin (3.9-5) g/dL Albumin/Globulin Ratio % Lipase (13-60) units/L HCG, Qual Negative (Negative) - EKG Data -: EKG Interpreted by Me EKG shows normal: sinus rhythm Rate: bradycardia - Radiology Data Radiology results: report reviewed - Medical Decision Making Upon stressing results with the patient she informs me that she has been seen by a Dr. Smith for chest pain and was given Cartia and nitroglycerin to take. Patient states that she had a normal stress test by this physician and has not been instructed to have a cardiac catheterization. Again this history is obtained via the help of manufacturing controls engineer. Patient's has no initial for positive benzo found on urinalysis Critical care attestation.: If time is entered above; I have spent that time in minutes in the direct care of this critically ill patient, excluding procedure time. ED Disposition Clinical Impression: Chest pain Disposition: TO HOME OR SELFCARE Is pt being admited?: No Does the pt Need Aspirin: No Condition: Stable Instructions: Chest Pain (ED) Additional Instructions: return if worse Referrals: PRIMARY CARE, [Primary Care Provider] - 3-5 Days BRADFORD YAO MD [Staff Physician] - 3-5 Days [facility] [Provider Group] - 3-5 Days [facility] [Provider Group] - 3-5 Days Time of Disposition: 15:01
[2018-12-13 14:01] LABS: Bacteria,Urine 1+ /HPF (Negative); Bilirubin,Urine NEG (Negative); Blood,Urine NEG (Negative); Color,Urine Straw (Yellow); Protein,Urine <15 mg/dL mg/dL (Negative); Urobilinogen,Urine < 2.0 mg/dL (<2.0)
[2018-12-13 14:07] LABS: Amphetamine Screen,Urine PRESUMPTIVE NEGATIVE; Benzodiazepines Screen,Urine PRESUMPTIVE NEGATIVE; Cannabinoid Screen,Urine PRESUMPTIVE NEGATIVE; Cocaine Screen,Urine PRESUMPTIVE NEGATIVE; Methadone Screen,Urine PRESUMPTIVE NEGATIVE; Opiate Screen,Urine PRESUMPTIVE NEGATIVE
[2018-12-13] MEDS ORDERED: IBUPROFEN PO ONE ×2 (15:38)
[2018-12-13 15:50] VITALS: BP 105/59
== END 2018-12-13 15:50 | disposition home or self-care (01) ==
LOC: ED 09:37
DX: R07.9 Chest pain, unspecified (principal); R06.02 Shortness of breath
CPT/HCPCS: 36415; 71045; 80053; 80307; 81001; 83690; 84443; 84484; 84703; 85025; 85379; 85610; 85730; 93005; 93010